=== PATIENT | male | born 1990 | race Caucasian/White ===

== ENCOUNTER 2017-03-23 17:49 | Emergency (ER) | payer SELFPAY ==
[~2017-03-23] VITALS: Ht 175.3 cm; Wt 77.1 kg
[2017-03-23 18:40] VITALS: BP 138/80
--- NOTE | 2017-03-23 19:12 | PHYS DOC ---
General Chief Complaint: SORE THROAT Stated Complaint: SORE THROAT/BILATERAL EAR PAIN Time Seen by MD: 18:17 Source: patient Exam Limitations: no limitations Problems: History of Present Illness Initial Comments Pt is 26/M to ED c/o sore throat and bilateral ear pain. Pt states for past week he's had a scratchy sore throat. Past few days worsening right ear pain/muffled hearing. No trauma/discharge, today with left ear pain. No difficulty swallowing, no neck stiffness/UNDERWOOD/fever/chills/n/v/d/olivares /sob. No prearrival treatment, pt normally healthy is heavy cigarette smoker. PCP Dr Vizcaino Timing/Duration: gradual, last week Severity: severe Location: ear (R), ear (L), throat Prearrival Treatment: over the counter meds Modifying Factors: worse with coughing Associated Symptoms: change in hearing, nasal congestion/drainage, poor solids intake, sore throat Allergies: Coded Allergies: No Known Drug Allergies (Unverified , 03/23/17) Past Medical History Medical History: no pertinent history Surgical History: noncontributory Social History Smoker: cigarettes Alcohol: none Drugs: none Constitutional: denies chills, denies diaphoresis, denies fever, malaise Eyes: denies blindness, denies blurred vision, denies drainage, denies decreased acuity Ears: see HPI Nose: congestiondenies epistaxis, denies pain, denies bloody discharge Throat: see HPIdenies neck stiffness, painful swallowingdenies difficulty with fluids Respiratory: denies cough, denies shortness of breath, denies wheezing Cardiovascular: denies chest pain, denies palpitations, denies syncope Gastrointestinal: denies abdominal pain, denies nausea, denies vomiting Musculoskeletal: denies back pain, denies joint swelling, denies neck pain Neurological: denies headache, denies numbness, denies paresthesia Physical Exam General Appearance: WD/WN, no apparent distress Eyes: bilateral eye EOMI, bilateral eye PERRL, bilateral eye normal inspection Ears: bilateral ear other (b/l TM erythema, R TM appears possibly ruptured at 12 o clock with copious whitish purulent discharge, will treat as such) Nose: normal inspection Mouth/Throat: other (pharynx red no exudate, airway patent) Neck: supple, trachea midline, lymphadenopathy (R), lymphadenopathy (L) Cardiovascular/Respiratory: normal breath sounds, no respiratory distress Neurologic/Psychiatric: glass edger II-XII nml as tested, no motor/sensory deficits, alert, normal mood/affect, oriented x 3 Skin: normal color, warm/dry Orders, Labs, Meds strep negative I discussed importance of smoking cessation. I discussed need to keep right ear dry and for recheck once acute infection improving. If TM still appears ruptured pt PCP will likely refer to ENT. Close follow up and communication with PCP stressed and recommended. Departure Time of Disposition: 19:07 Disposition: 01 HOME, SELF-CARE Diagnosis: acute suppurative OM b/l, R TM rupture, tobaccoism Condition: STABLE Patient Instructions: Eardrum Perforation, Alat-jn-Gumi, Otitis Media, Adult, Smoking Cessation, Tips For Success Additional Instructions: Aggressive hydration with gatorade, water. OTC ibuprofen and analgesic throat sprays as needed. Keep right ear dry except medications until doctor follow up. Rx: bactrim ds, floxin otic, norco 5mg #10 Follow up with your doctor in 1-2 weeks for recheck, will likely need ENT referral. Return to ED with new or changing symptoms. BENJIE KIRKPATRICK DO Mar 23, 2017 19:12
[2017-03-23] MEDS ORDERED: CEFTRIAXONE IM 1 GM VIAL. IM ONE (19:15)
[2017-03-23] MEDS ORDERED: ONDANSETRON ODT 4 MG TAB.RAPDIS PO ONE (19:15)
[2017-03-23] MEDS ORDERED: HYDROCODONE/APAP 10/325 TABLET. PO ONE (19:15)
[2017-03-23] MEDS ORDERED: LIDOCAINE 1% Multi-Dose 20 ML VIAL. ONE (19:22)
== END 2017-03-23 19:30 | disposition home or self-care (01) ==
LOC: ER 17:49
DX: H66.011 Acute suppurative otitis media with spontaneous rupture of ear drum, right ear (principal); H66.002 Acute suppurative otitis media without spontaneous rupture of ear drum, left ear; J02.9 Acute pharyngitis, unspecified; F17.210 Nicotine dependence, cigarettes, uncomplicated
CPT/HCPCS: 87070; 87880; 96372; 99284; J0696; Q0162